=== PATIENT | female | born 1955 | race Caucasian/White ===

== ENCOUNTER 2017-06-26 10:00 | Emergency (ER) | payer OTHER ==
[~2017-06-26] VITALS: Ht 154.9 cm; Wt 97.0 kg
[~2017-06-26 10:00] MED LIST: ASPI-1159 PO; EXEN2VIA SUBCUT; FERR-63 PO; INSU3INS6 SUBCUT; LIP40 PO; LISI-604 PO; METO-539 PO; NEPVIT PO; Oscal PO; PIOG15TA6 PO
[2017-06-26] MEDS ORDERED: PIPERACILLIN/TAZOBACTAM 3.375GM/50ML PREMIX IV ONE (10:45)
[2017-06-26] MEDS ORDERED: MORPHINE SULFATE 4 MG/ML CPJ (NOT FOR IM USE) IV ONE (10:45)
[2017-06-26] MEDS ORDERED: ONDANSETRON HCL 4MG/2ML VIAL IV ONE (10:45)
[2017-06-26] MEDS ORDERED: PIPERACILLIN/TAZ 3.375G PREMIX 50 ML IV ONE (11:00)
[2017-06-26] MEDS ORDERED: IBUPROFEN 600MG TABLET PO ONE (11:15)
[2017-06-26 12:25] VITALS: BP 123/73
== END 2017-06-26 12:40 | disposition home or self-care (01) ==
LOC: ER 10:51
DX: L03.211 Cellulitis of face (principal); I10 Essential (primary) hypertension; E78.00 Pure hypercholesterolemia, unspecified; E11.9 Type 2 diabetes mellitus without complications; Z79.82 Long term (current) use of aspirin; Z79.4 Long term (current) use of insulin
CPT/HCPCS: 70486; 96365; 99284; J2270; J2543; Z7610; J2405

== ENCOUNTER 2018-04-25 08:58 | Day surgery (SDC) | payer OTHER ==
[~2018-04-25] VITALS: Ht 152.4 cm; Wt 95.3 kg
[2018-04-25] MEDS ORDERED: INSLIS SUBCUT (10:17)
[2018-04-25] MEDS ORDERED: EXEN2PEN SQ (10:17)
[2018-04-25] MEDS ORDERED: ISOS30TA12 PO (10:18)
[2018-04-25] MEDS ORDERED: LIDOCAINE HCL 1% 20ML VIAL (Pyxis) INJ ONE (11:06)
[2018-04-25] MEDS ORDERED: IOHEXOL-300 100 ML BOTTLE ONE (11:23)
[2018-04-25] MEDS ORDERED: FENTANYL CITRATE/PF 50MCG/ML 2ML VIAL ONE (11:35)
[2018-04-25] MEDS ORDERED: MIDAZOLAM HCL 2 MG/2 ML VIAL ONE (11:35)
[2018-04-25] MEDS ORDERED: LABETALOL HCL 5MG/ML VIAL 20ML IV ONE (11:43)
[2018-04-25] MEDS ORDERED: NITROGLYCERIN 0.4MG TABLET SL SL ONE (12:00)
== END 2018-04-25 18:30 | disposition home or self-care (01) ==
LOC: CCL 08:58
PROVIDERS: ATTEND Specialist
DX: I25.10 Atherosclerotic heart disease of native coronary artery without angina pectoris (principal)
CPT/HCPCS: 36415; 82962; 84132; 93458; C1760; C1769; C1887; C1893; J1644; J2250; J3010; J3490; J7040; Q9967

== ENCOUNTER 2019-10-13 09:41 | Inpatient (IN) | payer OTHER ==
[~2019-10-13] VITALS: Ht 154.9 cm; Wt 97.3 kg
[~2019-10-13 09:41] MED LIST changes: -ASPI-1159 PO; +ASPI-1497 PO; +EXEN2PEN SQ; +INSLIS SUBCUT; +ISOS30TA12 PO
[2019-10-13] MEDS ORDERED: ACETAMINOPHEN 325MG TABLET PO STA (10:45)
[2019-10-13] MEDS ORDERED: SODIUM CHLORIDE 0.9% 1,000 ML IV ONE ×2 (10:45→11:43)
[2019-10-13] MEDS ORDERED: ONDANSETRON HCL 4MG/2ML INJ IV STA (10:45)
[2019-10-13 11:04] LABS: HEMATOCRIT. 30.4 % (36.0-48.0); HEMOGLOBIN. 9.8 g/dL (12.0-16.0); MEAN CORPUSCULAR VOLUME 80.9 fL (81.0-99.0); MEAN PLATELET VOLUME 8.8 fl (7.4-10.4); PLATELET 315 x1000/uL (130-400); RED BLOOD CELL COUNT 3.76 mill/uL (4.2-5.4); RED CELL DISTRIBUTION WIDTH 15.4 % (11.6-14.6)
[2019-10-13 11:26] LABS: CHLORIDE 93 mEq/L (98-107)
[2019-10-13 11:33] LABS: CLARITY URINE TURBID (CLEAR); COLOR URINE ORANGE (YELLOW); SPECIFIC GRAVITY URINE 1.023 (1.005-1.030)
[2019-10-13 11:34] LABS: PROTEIN URINE 2+ (NEGATIVE)
[2019-10-13 11:35] LABS: KETONES URINE NEGATIVE (NEGATIVE); LEUKOCYTE ESTERASE URINE 3+ (NEGATIVE); NITRITE URINE POSITIVE (NEGATIVE); OCCULT BLOOD URINE 2+ (NEGATIVE)
[2019-10-13] MEDS ORDERED: CEFTRIAXONE 1 G PREMIX 50 ML IV ONE (11:45)
[2019-10-13 12:01] LABS: PLATELET ESTIMATE NORMAL
[2019-10-13] MEDS ORDERED: IPRATROPIUM/ALBUTEROL 0.5-3(2.5)MG/3ML NEB HHN PRN (14:45)
[2019-10-13] MEDS ORDERED: CLONIDINE 0.1MG TABLET PO PRN (14:45)
[2019-10-13] MEDS ORDERED: ONDANSETRON HCL 4MG/2ML INJ IV PRN (14:45)
[2019-10-13] MEDS ORDERED: MORPHINE SULFATE 2 MG/ML CPJ (NOT FOR IM USE) IV PRN (14:45)
[2019-10-13] MEDS ORDERED: DIPHENHYDRAMINE 50MG/ML VIAL IV PRN (14:45)
[2019-10-13] MEDS ORDERED: DEXTROSE 50% WATER 50ML SYRINGE IV PRN (15:00)
[2019-10-13 15:28] LABS: PHOSPHORUS 0.2 mg/dL (2.5-4.9)
[2019-10-13 16:03] LABS: TOTAL IRON BINDING CAPACITY 290 ug/dL (250-450)
[2019-10-13] MEDS: SODIUM CHLORIDE 0.9% 1,000 ML IV SCH (16:28)
[2019-10-13] MEDS: KETOROLAC 30MG/ML VIAL IV PRN (16:28)
[2019-10-13] MEDS: BLOOD SUGAR DIAGNOSTIC STRIP TEST SCH ×2 (17:03→21:22)
[2019-10-13] MEDS: INSULIN LISPRO 100 UNITS/ML SUBCUT SCH ×2 (17:07→21:51)
[2019-10-13] MEDS ORDERED: MEROPENEM 500 MG in SODIUM CHLORIDE 0.9% 50 ML IV SCH (17:45)
[2019-10-13] MEDS ORDERED: MEROPENEM 1000MG in NORMAL SALINE 100ML IV SCH (18:30)
[2019-10-13 19:18] VITALS: BP 107/50
[2019-10-13 20:00] VITALS: BP 107/50
[2019-10-13 20:18] VITALS: BP 99/40
[2019-10-13] MEDS ORDERED: HYDR25TA MT (21:07)
[2019-10-13] MEDS ORDERED: METO100T16 MT (21:07)
[2019-10-13] MEDS ORDERED: LISI40TA4 MT (21:07)
[2019-10-13] MEDS ORDERED: PROT40 PO (21:07)
[2019-10-13 21:18] VITALS: BP 113/48
[2019-10-13] MEDS: MEROPENEM 1000MG in NORMAL SALINE 100ML IV SCH (21:42)
[2019-10-13 22:18] VITALS: BP 121/55
[2019-10-13 23:18] VITALS: BP 113/56
[2019-10-13] MEDS ORDERED: HYDROCODONE/ACETAMINOPHEN 5/325MG TABLET PO PRN (23:30)
[2019-10-14] VITALS (14 sets, daily range): BP systolic 114–169; BP diastolic 47–79
[2019-10-14] MEDS ORDERED: MAGNESIUM 2 G PREMIX 50 ML IV NR (00:30)
[2019-10-14] MEDS ORDERED: SODIUM PHOS,M-BASIC-D-BASIC 20 MM in DEXT 5% WATER 243.3333 ML IV NR (01:00)
[2019-10-14] MEDS: BLOOD SUGAR DIAGNOSTIC STRIP TEST SCH ×4 (05:46→20:59)
[2019-10-14] MEDS: INSULIN LISPRO 100 UNITS/ML SUBCUT SCH ×5 (07:48→21:06)
[2019-10-14] MEDS: MEROPENEM 1000MG in NORMAL SALINE 100ML IV SCH ×2 (08:49→20:49)
[2019-10-14] MEDS: ACETAMINOPHEN 325MG TABLET PO PRN (09:00)
[2019-10-14] MEDS ORDERED: CEFTRIAXONE 1 G PREMIX 50 ML IV SCH (09:00)
[2019-10-14 10:15] LABS: HEMATOCRIT. 26.8 % (36.0-48.0); HEMOGLOBIN. 8.7 g/dL (12.0-16.0); MEAN CORPUSCULAR HEMOGLOBIN 26.3 pg (28.0-32.0); MEAN CORPUSCULAR VOLUME 81.3 fL (81.0-99.0); MEAN PLATELET VOLUME 8.8 fl (7.4-10.4); PLATELET 238 x1000/uL (130-400); RED CELL DISTRIBUTION WIDTH 15.1 % (11.6-14.6)
[2019-10-14 10:23] LABS: CHLORIDE 98 mEq/L (98-107)
[2019-10-14 10:29] LABS: LDL CHOLESTEROL 34 mg/dL (5-100)
[2019-10-14 10:30] LABS: HDL CHOLESTEROL 28 mg/dL (40-59); PHOSPHORUS 4.7 mg/dL (2.5-4.9)
[2019-10-14] MEDS: SODIUM CHLORIDE 0.9% 1,000 ML IV SCH ×2 (11:58→20:48)
[2019-10-14 12:55] LABS: PLATELET ESTIMATE NORMAL
[2019-10-14] MEDS: KETOROLAC 30MG/ML VIAL IV PRN (15:39)
[2019-10-14] MEDS: ISOSORBIDE MONONITRATE 60MG TABLET SR 24HR PO SCH (16:32)
[2019-10-14] MEDS: METOPROLOL TARTRATE 50MG TABLET PO SCH (20:49)
[2019-10-14] MEDS: INSULIN GLARGINE UD 100 UNITS/ML SYR SUBCUT SCH (21:53)
[2019-10-15] VITALS (10 sets, daily range): BP systolic 109–158; BP diastolic 56–82
[2019-10-15] MEDS: SODIUM CHLORIDE 0.9% 1,000 ML IV SCH (06:03)
[2019-10-15] MEDS: BLOOD SUGAR DIAGNOSTIC STRIP TEST SCH ×2 (06:07→11:31)
[2019-10-15] MEDS: INSULIN LISPRO 100 UNITS/ML SUBCUT SCH ×3 (06:18→12:20)
[2019-10-15] MEDS: ACETAMINOPHEN 325MG TABLET PO PRN ×2 (06:20→14:43)
[2019-10-15 06:55] LABS: HEMATOCRIT. 24.2 % (36.0-48.0); HEMOGLOBIN. 7.9 g/dL (12.0-16.0); MEAN CORPUSCULAR HEMOGLOBIN 26.6 pg (28.0-32.0); MEAN CORPUSCULAR VOLUME 81.2 fL (81.0-99.0); MEAN PLATELET VOLUME 8.7 fl (7.4-10.4); PLATELET 230 x1000/uL (130-400); RED BLOOD CELL COUNT 2.98 mill/uL (4.2-5.4)
[2019-10-15] MEDS: ISOSORBIDE MONONITRATE 60MG TABLET SR 24HR PO SCH (08:40)
[2019-10-15] MEDS: METOPROLOL TARTRATE 50MG TABLET PO SCH (08:48)
[2019-10-15] MEDS: MEROPENEM 1000MG in NORMAL SALINE 100ML IV SCH (08:50)
[2019-10-15] MEDS ORDERED: ASPIRIN 81MG EC TABLET PO SCH (09:00)
[2019-10-15 09:58] LABS: PLATELET ESTIMATE NORMAL
[2019-10-15] MEDS ORDERED: CEFAZOLIN 1000MG PREMIX 50 ML IV SCH (14:00)
[2019-10-15] MEDS ORDERED: CEPH-568 MT (14:56)
[2019-10-15] MEDS: INSULIN GLARGINE UD 100 UNITS/ML SYR SUBCUT SCH (16:31)
== END 2019-10-15 18:20 | disposition home or self-care (01) | DRG 871 ==
LOC: ER 09:56 → 3WST 13:34 → EDBEDREQ 13:38 → EDBEDREQSVC 13:38 → ENRESERV 16:22
PROVIDERS: ADMIT Internal Medicine; ATTEND Internal Medicine
DX: A41.51 Sepsis due to Escherichia coli [E. coli] (principal); N17.0 Acute kidney failure with tubular necrosis; Z68.41 Body mass index [BMI] 40.0-44.9, adult; E44.0 Moderate protein-calorie malnutrition; E87.1 Hypo-osmolality and hyponatremia; N12 Tubulo-interstitial nephritis, not specified as acute or chronic; E86.0 Dehydration; E11.22 Type 2 diabetes mellitus with diabetic chronic kidney disease; I12.9 Hypertensive chronic kidney disease with stage 1 through stage 4 chronic kidney disease, or unspecified chronic kidney disease; N18.9 Chronic kidney disease, unspecified; D50.9 Iron deficiency anemia, unspecified; E27.8 Other specified disorders of adrenal gland; I25.10 Atherosclerotic heart disease of native coronary artery without angina pectoris; E78.5 Hyperlipidemia, unspecified; E66.9 Obesity, unspecified; Z98.61 Coronary angioplasty status; Z79.82 Long term (current) use of aspirin; Z79.899 Other long term (current) drug therapy
CPT/HCPCS: 36415; 74176; 80048; 80053; 80061; 81003; 82728; 82962; 83036; 83540; 83550; 83605; 83735; 84100; 84145; 84443; 85025; 87077; 87186; 93005; 93970; 96365; 99291; J0690; J0696; J1815; J1885; J2185; J2270; J2405; J3475; J3490; J7030; J7060